=== PATIENT | male | born 1940 | race Caucasian/White ===

== ENCOUNTER 2017-03-12 10:55 | Outpatient (CLI) ==
[2013-09-04 21:49] VITALS: BMI 21.7
--- NOTE | 2017-03-12 11:31 | DI ---
EXAM: Radiographs, right hand HISTORY: Right hand swelling. Probable area over the distal second metacarpal. COMPARISON: None available. TECHNIQUE: Three views. FINDINGS: Bone mineralization is normal. No fracture or dislocation identified. There appear to b e some extraarticular erosions at several interphalangeal joints, most notably be within the distal aspect of the second proximal phalanx. Areas of joint space narrowing marginal osteophyte formation also noted throughout the hand and wrist. There is soft tissue swelling seen along the radial aspe ct of the second MCP joint although no underlying erosions are seen at this level. No soft tissue c alcifications identified.. IMPRESSION: 1. Soft tissue swelling at the second MCP joint. 2. Suspect extraarticular erosions at several interphalangeal joints. Correlate for signs of gout. 3. Osteoarthritis.
== END 2017-03-12 10:56 | disposition home or self-care (01) ==
LOC: RAD 10:55
PROVIDERS: ATTEND Family Medicine
DX: M79.89 Other specified soft tissue disorders (principal)

== ENCOUNTER 2018-02-16 10:00 | Day surgery (SDC) | payer OTHER ==
[2013-09-04 21:49] VITALS: BMI 21.7
[2018-02-16] MEDS ORDERED: LIDOCAINE 1% 20 ML MDV ID STA (11:16)
[2018-02-16] MEDS ORDERED: VERSED ONE (12:45)
[2018-02-16] MEDS ORDERED: DIPRIVAN 20 ML VIAL IVP ONE (12:45)
[2018-02-16 16:21] VITALS: BP 122/45; TEMP 98.6
--- NOTE | 2018-02-17 11:51 | OP ---
PROCEDURE: COLONOSCOPY TO THE CECUM WITH SNARE POLYPECTOMY. ENDOSCOPIST: Matt GOYAL M.D. INDICATION: HISTORY OF POLYPS. INSTRUMENT: [id number]. MEDICATION: PER ANESTHESIA. PROCEDURE: The patient was positioned for colonoscopy. The digital rectal exam was negative. The colonoscope was inserted through the anus and advanced to the cecum. The cecum was identified using the ileocecal valve and the appendiceal orifice as landmarks. The scope was slowly withdrawn through an adequately prepped colon. Careful inspection made of each colonic segment and the scope withdrawn in a circumferential fashion. Care is taken to inspect the proximal side of the ileocecal valve, Haustral folds, flexures and rectal valves. Small polyp in the ascending colon removed using snare cautery. Retroflex exam was otherwise negative Withdraw time 7 minutes 22 seconds. PLAN: 1. Repeat colonoscopy in 5 years MTDD
== END 2018-02-16 13:50 | disposition home or self-care (01) ==
LOC: SURG 10:00
PROVIDERS: ATTEND Internal Medicine Gastroenterology
DX: Z86.010 Personal history of colon polyps (principal); D12.2 Benign neoplasm of ascending colon; Z09 Encounter for follow-up examination after completed treatment for conditions other than malignant neoplasm

== ENCOUNTER 2018-05-23 18:10 | Emergency (ER) | payer OTHER ==
[2018-05-23 18:17] VITALS: BP 130/87; TEMP 98.6; BMI 22.9
[2018-05-23] MEDS ORDERED: ASPIRIN CHEWABLE PO STA (18:31)
[2018-05-23] MEDS ORDERED: SODIUM CHLORIDE 1,000 ML IV STA (18:32)
--- NOTE | 2018-05-23 18:37 | ED.PDOC ---
General ED Provider: Dr. CHLOE MOJICA Chief Complaint: Chest Pain Stated Complaint: chest pain Time Seen by Physician: 18:18 (chest pain x 72 hrs ) Mode of Arrival: Walk-In Information Source: Patient, Family Exam Limitations: No limitations Primary Care Provider: MARA PLATA Nursing and Triage Documentation Reviewed and Agree: Yes Does patient meet sepsis criteria?: No If yes, has appropriate treatment been initiated?: No System Inflammatory Response Syndrome: Not Applicable Sepsis Protocol: For patient's 13 years and over: Temp is 96.8 and below OR 101 and greater Pulse >90 BPM Resp >20/minute Acutely Altered Mental Status Are patient's symptoms suggestive of a new infection, such as: -Pneumonia -Skin, Soft Tissue -Endocarditis -UTI -Bone, Joint Infection -Implantable Device -Acute Abdominal Infection -Wound Infection -Meningitis -Blood Stream Catheter Infection -Unknown Cardiovascular Complaint Exam - Chest Pain Complaint/Exam Onset: Gradual Duration: 3 days Symptoms Are: Still present Timing: Intermittent Length of Chest Pain Episodes: 1 hr Initial Severity: Moderate Current Severity: Mild Location: Reports: Discrete, Midsternal, Left anterior Pain Radiates: Reports: Back, Left shoulder (left axilla) Character: Reports: Dull (belching ) Aggravating: Reports: Exertion Alleviating: Reports: Rest Associated Signs and Symptoms: Denies: Diaphoresis, Nausea, Vomiting, Fever, Palpitations, Cough, Hemoptysis, Back pain, Abdominal pain, Dizziness, Short of air, Calf pain, Calf swelling Related History: Reports: Similar episode Related Surgical History: Reports: None History of Healthcare-Acquired Pneumonia: Reports: No AMI/ACS Risk Factors: Reports: Hypertension TAD Risk Factors: Reports: Hypertension Pulmonary Embolism Risk Factors: Reports: None Prior Care for this Complaint: No Recent Stress Test: No Recent Echo/LV Function: No JVD Present: No Subcutaneous Emphysema Present: No Diminshed Breath Sounds: No Reproducible Chest Wall Pain: No Bilateral Pulses Present: No Unequal Pulses Noted: No If Risk Factors for AMI/ACS Consider: EKG, Cardiac Enzymes Review of Systems - Review Of Systems Constitutional: Reports: No symptoms Eyes: Reports: No symptoms Ears, Nose, Mouth, Throat: Reports: No symptoms Respiratory: Reports: No symptoms Cardiac: Reports: Chest pain GI: Reports: No symptoms : Reports: No symptoms Musculoskeletal: Reports: No symptoms Skin: Reports: No symptoms Neurological: Reports: No symptoms Endocrine: Reports: No symptoms Hematologic/Lymphatic: Reports: No symptoms All Other Systems: Reviewed and Negative Past Medical History - Past Medical History Previously Healthy: Yes Endocrine: Reports: None Cardiovascular: Reports: Hypertension Respiratory: Reports: None Hematological: Reports: None Gastrointestinal: Reports: None Genitourinary: Reports: None Neuro/Psych: Reports: None Musculoskeletal: Reports: None Cancer: Reports: None - Surgical History General Surgical History: Reports: None - Family History Family History: Reports: None - Social History Smoking Status: Former smoker Hx Substance Use: No Alcohol Screening: None - Immunizations Tetanus Shot up to Date: Yes Physical Exam - Physical Exam Appearance: Well-appearing, No pain distress, Well-nourished Eyes: KAIN, EOMI, Conjunctiva clear ENT: Ears normal, Nose normal, Oropharynx normal Respiratory: Airway patent, Breath sounds clear, Breath sounds equal, Respirations nonlabored Cardiovascular: RRR, Pulses normal, No rub, No murmur GI/: Soft, Nontender, No masses, Bowel sounds normal, No Organomegaly Musculoskeletal: Normal strength, ROM intact, No edema, No calf tenderness Skin: Warm, Dry, Normal color Neurological: Sensation intact, Motor intact, Reflexes intact, Cranial nerves intact, Alert, Oriented Psychiatric: Affect appropriate, Mood appropriate Interpretation - Tennis [employer]r Rate: Normal Rhythm: Sinus Ectopy: None - EKG Interpretation Rate: Normal Rhythm: Sinus Ectopy: None [employer] [place]: NL ST Segment: Normal Physician Notification - Case Discussed Physician Notified: vince MARTINEZ Time of Notification: 19:00 Time of Notification: 19:00 Critical Care Note - Critical Care Note Total Time (mins): 0 Course - Course Hematology/Chemistry: 05/23/18 18:31 Orders, Labs, Meds: Lab Review 05/23/18 18:31 WBC 5.16 RBC 4.50 L Hgb 13.3 L Hct 39.2 L MCV 87.1 MCH 29.6 MCHC 33.9 RDW Coeff of Gaurav 13.1 Plt Count 157 Immature Gran % (Auto) 0.2 Neut % (Auto) 51.6 Lymph % (Auto) 33.5 [place] % (Auto) 12.4 H Eos % (Auto) 1.9 Baso % (Auto) 0.4 Immature Gran # (Auto) 0.0 Neut # (Auto) 2.7 Lymph # (Auto) 1.7 [place] # (Auto) 0.6 Eos # (Auto) 0.1 Baso # (Auto) 0.0 Orders Category Date Time Status EKG-(ED ONLY) Stat CARDIO 05/23/18 18:31 Ordered EKG-(ED ONLY) Stat CARDIO 05/23/18 19:00 Ordered NPO REMINDER: IMAGING ONCE CARE 05/23/18 18:32 Ordered ED IV/MEDIPORT/POWERPORT .ONCE EMERGENCY 05/23/18 18:31 Ordered CBC W/ AUTO DIFF Stat LAB 05/23/18 18:31 Ordered COMPREHENSIVE METABOLIC PANEL Stat LAB 05/23/18 18:31 Ordered CREATINE KINASE Stat LAB 05/23/18 18:31 Ordered TROPONIN I Stat LAB 05/23/18 18:31 Ordered 0.9 % Sodium Chloride [Saline Flush] MEDS 05/23/18 18:31 Ordered 1 syr IVF PRN PRN Morphine Sulfate [Morphine 2 mg/ml Syringe] MEDS 05/23/18 18:46 Stat 2 mg IVP ONCE STA Ondansetron HCl/Pf [Zofran 4 mg/2 ml] MEDS 05/23/18 18:46 Stat 4 mg IVP ONCE STA SODIUM CHLORIDE 0.9% @ 100 MLS/HR(1,000ml) MEDS 05/23/18 18:32 Ordered Sodium Chloride 0.9% [Sodium Chloride] 1,000 ml IV 100 mls/hr CTA ANGIO CHEST Stat RADS 05/23/18 18:31 Ordered Medications Generic Name Dose Route Start Last Admin Trade Name Freq PRN Reason Stop Dose Admin Sodium Chloride 1,000 mls @ 100 mls/hr 05/23/18 18:32 Sodium Chloride IV 05/24/18 04:31 .Q10H STA Sodium Chloride 1 syr 05/23/18 18:31 Saline Flush IVF PRN PRN To flush IV Discontinued Medications Generic Name Dose Route Start Last Admin Trade Name Freq PRN Reason Stop Dose Admin Morphine Sulfate 2 mg 05/23/18 18:46 Morphine 2 Mg/Ml Syringe IVP 05/23/18 18:47 ONCE STA Ondansetron HCl 4 mg 05/23/18 18:46 Zofran 4 Mg/2 Ml IVP 05/23/18 18:47 ONCE STA Vital Signs: Temp Pulse Resp BP Pulse Ox 05/23/18 18:11 98.6 F 77 16 130/87 96 ROXANNE Risk Score ROXANNE Risk Score: Risk Score Odds of by 30D 0 0.1 (0.1-0.2) 1 0.3 (0.2-0.3) 2 0.4 (0.3-0.5) 3 0.7 (0.6-0.9) 4 1.2 (1.0-1.5) 5 2.2 (1.9-2.6) 6 3.0 (2.5-3.6) 7 4.8 (3.8-6.1) Departure - Departure Time of Disposition: 19:00 Disposition: TSF SHORT-TRM HOSP Discharge Problem: Chest pain Instructions: Angina (ED) Condition: Good Pt referred to PMD for follow-up: Yes IPMP verified?: No Additional Instructions: Please call your Family Physician as soon as possible to schedule a follow-up appointment. Allergies/Adverse Reactions: Allergies No Known Allergies Allergy (Verified 02/16/18 11:17) Home Medications: Ambulatory Orders Aspirin/Calcium Carbonate/Mag [Aspirin Buffered 325 mg Tab] 325 mg PO DAILY Propranolol HCl [Inderal] 20 mg PO BID 06/30/13 Tamsulosin HCl [Flomax] 0.4 mg PO DAILY 07/02/13 Calcium No.1/D3/B6/FA/B12/Aloe [Vitamin D3-Aloe 1,000 Unit Tab] 1,000 units PO DAILY 02/11/18 Losartan/Hydrochlorothiazide [Losartan-Hctz 50-12.5 mg Tab] 12.5 mg PO DAILY 11/30 Amlodipine Besylate 5 mg PO BID 05/23/18 Dutasteride 0.5 mg PO DAILY 05/23/18 Meloxicam 7.5 mg PO BID 05/23/18 Disposition Discussed With: Patient, Family
[2018-05-23] MEDS ORDERED: ZOFRAN 4 MG/2 ML IVP STA (18:46)
[2018-05-23] MEDS ORDERED: MORPHINE 2 MG/ML SYRINGE IVP STA (18:46)
--- NOTE | 2018-05-23 20:28 | CT ---
EXAM: CTA chest for Pulminary Embolism. HISTORY: Pain COMPARISON: None TECHNIQUE: CTA of the chest was performed from the lung apices to the upper abdomen after 125 ml of Omnipaque IV contrast was administered using PE protocol. 3-D imaging was also provided. Axial scans acquired at 3 mm slice thicknesses. MPR coronal and sagittal sequence completed. 3-D surface render ed rotational sequence completed FINDINGS: There is no filling defect in the pulmonary arteries to the level of the subsegmental pulm onary arteries. The heart is normal without signs of ventricular strain. There is no aortic dissecti on. There is ectasia of the ascending aorta measuring 4.03 cm compared descending aorta 2.62 cm. Th ere is no pericardial or pleural effusion. No mediastinal or hilar adenopathy is seen. There is no pulmonary edema. Lungs appear hyperinflated. There is a noncalcified 4.74 mm pulmonary nodule perip nathen the right upper lobe. There is a noncalcified 4.50 mm fissural node or nodule right middle lobe . There is some atelectasis right lower lobe. There is some peribronchial thickening lung bases. There is no adrenal enlargement. Bones are free of osteolytic or blastic lesion. Impression 1. No evidence of pulmonary embolism. 2. No aortic dissection. 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 Noncalcified pulmonary nodules right upper lobe 4.74 mm and right middle lobe 4.[address] in 6 to 12-month suggested to further assess. 4. Right lower lobe atelectasis. 5. Peribronchial thickening lung bases suggesting possible bronchitis. No lobar pneumonia
== END 2018-05-23 19:50 | disposition short-term general hospital (02) ==
LOC: ED 18:10
DX: R07.9 Chest pain, unspecified (principal); I10 Essential (primary) hypertension; Z79.899 Other long term (current) drug therapy; R14.2 Eructation
CPT/HCPCS: 36415; 80053; 82550; 84484; 85025; 93005; 93010; 96361; 96374; 96375; 99285